=== PATIENT | male | born 1965 | race Two or more races ===

== ENCOUNTER 2022-05-28 00:15 | Emergency (ER) | payer OTHER ==
[~2022-05-28] VITALS: Ht 185.4 cm; Wt 68.0 kg
--- NOTE | 2022-05-28 00:25 | NUR ---
[id number]. SUBSTERNAL CP X 1 HR. I SPRAY NITRO GIVEN AND ASA 325MG. PATIENT IS ALERT, ORIENTED X4. PALE LOOKING. HAS PORTACATH ON THE RIGHT ANTERIOR CHEST FOR CHEMO TTT OF PROSTATE CA. PATIENT IS ATTACHED TO MONITOR. VITALS CHECKED AND WILL CONTINUE TO MONITOR.
[2022-05-28] MEDS ORDERED: MORPHINE SULFATE INJ 2 MG/ML DISP.SYRIN IV ONE (00:30)
--- NOTE | 2022-05-28 00:35 | NUR ---
ATTACHED TO MONITOR.
--- NOTE | 2022-05-28 00:36 | NUR ---
IV CANNULA G20 INSERTED ON RIGHT FA. BLOOD DRAWN AND SENT TO LAB
--- NOTE | 2022-05-28 00:36 | NUR ---
EKG DONE AT BEDSIDE
--- NOTE | 2022-05-28 00:37 | NUR ---
CXR DONE AT BEDSIDE
[2022-05-28] MEDS ORDERED: MORPHINE SULFATE INJ 4 MG/ML DISP.SYRIN ONE (00:45)
[2022-05-28 00:50] LABS: BASOPHILS % (AUTO) 0.4 % (0.0-2.0); EOSINOPHILS % (AUTO) 0.7 % (0.0-6.0); HEMATOCRIT 44 % (39-51); HEMOGLOBIN 14.4 g/dL (13.5-17.5); LYMPHOCYTES # (AUTO) 2.4 K/uL (0.8-4.8); LYMPHOCYTES % (AUTO) 42.7 % (20.0-44.0); MEAN CORPUSCULAR HGB CONC 33 g/dl (31.0-36.0); MEAN CORPUSCULAR VOLUME 89 fL (80-96); MONOCYTES # (AUTO) 0.4 K/uL (0.1-1.30); MONOCYTES % (AUTO) 7.1 % (2.0-12.0); NEUTROPHILS # (AUTO) 2.7 K/uL (1.8-8.9); NEUTROPHILS % (AUTO) 49.1 % (43.0-81.0); PLATELET COUNT (AUTO) 201 K/uL (150-450); RED BLOOD CELL COUNT(AUTO) 4.93 MIL/uL (4.5-6.0); WHITE BLOOD COUNT (AUTO) 5.5 K/uL (4.3-11.0)
--- NOTE | 2022-05-28 00:52 | NUR ---
COVID SWAB DONE AND SENT TO LAB
--- NOTE | 2022-05-28 01:03 | NUR ---
URINE COLLECTED AND SENT TO LAB
--- NOTE | 2022-05-28 01:11 | NUR ---
DESIGN TECHNOLOGY TEACHER CAME TO REDRAW BLOODS
[2022-05-28 01:33] LABS: CARBON DIOXIDE 32 mmol/L (21-32); CHLORIDE 98 mmol/L (98-107); CREATININE 0.4 mg/dL (0.6-1.3); GLUCOSE 106 mg/dL (74-106); POTASSIUM 3.7 mmol/L (3.5-5.1); SODIUM SERUM 136 mmol/L (136-145); UREA NITROGEN, BLOOD 15 mg/dL (7-18)
[2022-05-28] MEDS ORDERED: HYDROCODONE/APAP 5/325MG TABLET ONE (02:50)
[2022-05-28] MEDS ORDERED: HYDROCODONE/APAP 5/325MG TABLET PO ONE (03:00)
--- NOTE | 2022-05-28 03:29 | NUR ---
[employer] ACCOUNTANT- [facility] [phone]
--- NOTE | 2022-05-28 04:44 | NUR ---
PATIENT WANTS TO GO HOME AMA. DR FLOYD MADE AWARE. SIGNED AMA. IV CANNULA REMOVED.
[2022-05-28 04:45] VITALS: BP 137/98
== END 2022-05-28 04:46 | disposition left against medical advice (07) ==
LOC: ER 00:18
DX: R07.9 Chest pain, unspecified (principal); Z85.07 Personal history of malignant neoplasm of pancreas; Z85.46 Personal history of malignant neoplasm of prostate; I25.10 Atherosclerotic heart disease of native coronary artery without angina pectoris; Z95.5 Presence of coronary angioplasty implant and graft; Z20.822 Contact with and (suspected) exposure to COVID-19
CPT/HCPCS: 99285; 96374; 71045; 87426; 93005; 85025; 80048; 36415; 84484; J2270; C9803

== ENCOUNTER 2022-09-23 17:50 | Emergency (ER) | payer OTHER ==
[~2022-09-23] VITALS: Ht 175.3 cm; Wt 61.2 kg
--- NOTE | 2022-09-23 18:00 | NUR ---
[id number] FROM HOME C/O CHEST PAIN 30MIN RESPIRATORY PHYSICIAN, NONRADIATING GIVEN 0.4 NITRO SPRAY, LIVES WITH SON WHO'S COVID POSITIVE. PLACED ON BED, AAOX4, BREATHING EVEN AND UNLABORED SATURATING AT 96%RA, IN PAIN 6/10 PS, ATTACHED TO MONITOR SHOWS SINUS TACH, ID- [id number].
[2022-09-23] MEDS ORDERED: ASPIRIN 325 MG TABLET PO ONE (19:00)
--- NOTE | 2022-09-23 19:00 | NUR ---
blood drawn and sent to lab
[2022-09-23] MEDS ORDERED: DIAZ5TAB4 PO (19:05)
[2022-09-23] MEDS ORDERED: AMLO2.5T4 PO (19:05)
[2022-09-23] MEDS ORDERED: ASPI-869 PO (19:05)
[2022-09-23] MEDS ORDERED: PREG-59 PO (19:05)
[2022-09-23] MEDS ORDERED: CARV6.252 PO (19:05)
[2022-09-23] MEDS ORDERED: ATOR10TA PO (19:05)
[2022-09-23] MEDS ORDERED: POLY17PO4 PO (19:05)
[2022-09-23] MEDS ORDERED: ABIR250T2 PO (19:05)
[2022-09-23] MEDS ORDERED: MIRT-73 PO (19:05)
[2022-09-23] MEDS ORDERED: PANT40TA49 PO (19:05)
[2022-09-23] MEDS ORDERED: PRED5TAB PO (19:05)
[2022-09-23] MEDS ORDERED: SUCR1ORA15 PO (19:05)
[2022-09-23] MEDS ORDERED: POTA20TA83 PO (19:05)
[2022-09-23] MEDS ORDERED: METH10TA2 PO (19:05)
[2022-09-23] MEDS ORDERED: SENN-202 PO (19:05)
[2022-09-23] MEDS ORDERED: NALO4SPR (19:05)
[2022-09-23] MEDS ORDERED: ASPIRIN 325 MG TABLET ONE (19:08)
--- NOTE | 2022-09-23 19:46 | NUR ---
COVID SWAB COLLECTED
[2022-09-23 19:47] LABS: CALCIUM, SERUM 9.5 mg/dL (8.5-10.1); CARBON DIOXIDE 29 mmol/L (21-32); CHLORIDE 108 mmol/L (98-107); CREATININE 0.5 mg/dL (0.6-1.3); GLUCOSE 75 mg/dL (74-106); POTASSIUM 4.5 mmol/L (3.5-5.1); SODIUM SERUM 139 mmol/L (136-145); UREA NITROGEN, BLOOD 15 mg/dL (7-18)
[2022-09-23] MEDS ORDERED: ACETAMINOPHEN ES 500 MG TABLET ONE (19:59)
[2022-09-23 20:00] LABS: ALANINE AMINOTRANSFERASE 22 U/L (12-78); ALBUMIN 3.9 g/dL (3.4-5.0); ALKALINE PHOSPHATASE 49 U/L (46-116); ASPARTATE AMINOTRANSFERASE 21 U/L (15-37); BILIRUBIN,DIRECT 0.1 mg/dL (0.0-0.2); BILIRUBIN,TOTAL 0.3 mg/dL (0.2-1.0)
[2022-09-23] MEDS ORDERED: ACETAMINOPHEN ES 500 MG TABLET PO ONE (20:00)
[2022-09-23 20:42] LABS: BASOPHILS % (AUTO) 0.4 % (0.0-2.0); EOSINOPHILS % (AUTO) 1.4 % (0.0-6.0); HEMATOCRIT 42 % (39-51); HEMOGLOBIN 13.6 g/dL (13.5-17.5); LYMPHOCYTES # (AUTO) 0.5 K/uL (0.8-4.8); LYMPHOCYTES % (AUTO) 9.3 % (20.0-44.0); MEAN CORPUSCULAR HGB CONC 33 g/dl (31.0-36.0); MEAN CORPUSCULAR VOLUME 94 fL (80-96); MONOCYTES # (AUTO) 0.4 K/uL (0.1-1.30); NEUTROPHILS # (AUTO) 4.2 K/uL (1.8-8.9); NEUTROPHILS % (AUTO) 81.9 % (43.0-81.0); PLATELET COUNT (AUTO) 199 K/uL (150-450); RED BLOOD CELL COUNT(AUTO) 4.42 MIL/uL (4.5-6.0); WHITE BLOOD COUNT (AUTO) 5.1 K/uL (4.3-11.0)
[2022-09-23] MEDS ORDERED: ONDANSETRON HCL/PF 4 MG/2 ML VIAL ONE (21:45)
[2022-09-23] MEDS ORDERED: ONDANSETRON HCL/PF - ER 4 MG/2 ML VIAL IV ONE (22:00)
--- NOTE | 2022-09-23 23:05 | NUR ---
RM 110
--- NOTE | 2022-09-23 23:11 | NUR ---
REPORT GIVEN TO CHHAYA RANDOLPH ROOM 110 FOR JJ
--- NOTE | 2022-09-23 23:23 | NUR ---
EXPLAINED TO THAT FOR ADMISSION AND SHE CANNOT STAY WITH HIM COZ HE IS POSITIVE OF COVID. REFUSED TO LEAVE SIDE. SHE WOULD RATHER TAKE HER HOME OR TRANSFER TO OTHER HOSPITAL. EXPLAINED TO AGAIN THE RISK OF DOING AMA FOR HER ESPECIALLY WITH HIS PRESENT MEDICAL CONDITION. SHE CLAIMED SHE UNDERSTOOD BUT WANT TO SIGN AMA AND BRING TO [facility]. DR SANCHEZ AND ARTERIAL EMBALMER CHEMA AND DANGELO AARON MADE AWARE.
--- NOTE | 2022-09-23 23:28 | NUR ---
OF THE PATIENT SIGNED AMA DR SANCHEZ AND HOSPITALIST CHEMA MADE AWARE.
[2022-09-23] MEDS ORDERED: PROMETHAZINE HCL SYRUP 6.25 MG/5 ML UDC PO PRN (23:30)
[2022-09-23] MEDS ORDERED: ACETAMINOPHEN 325 MG TABLET PO PRN (23:30)
[2022-09-23] MEDS ORDERED: MORPHINE SULFATE INJ 2 MG/ML DISP.SYRIN IV PRN (23:30)
[2022-09-23] MEDS ORDERED: MAG HYDROX/AL HYDROX/SIMETH 30 ML UDC PO PRN (23:30)
[2022-09-23] MEDS ORDERED: ONDANSETRON HCL/PF 4 MG/2 ML VIAL IVP PRN (23:30)
[2022-09-23] MEDS ORDERED: Z GUARD REMEDY 4 OZ OINT TP PRN (23:30)
[2022-09-23] MEDS ORDERED: NITROGLYCERIN 0.4 MG/TAB BOTTLE SL PRN (23:30)
[2022-09-23] MEDS ORDERED: ZOLPIDEM TARTRATE 5 MG TABLET PO PRN (23:30)
[2022-09-23] MEDS ORDERED: DIAZEPAM 5 MG TABLET PO PRN (23:30)
[2022-09-23] MEDS ORDERED: ENOXAPARIN SODIUM 40 MG/0.4 ML DISP.SYRIN SQ SCH (23:30)
[2022-09-23] MEDS ORDERED: MAGNESIUM HYDROXIDE 30 ML UDC PO PRN (23:30)
--- NOTE | 2022-09-23 23:37 | NUR ---
Patient discharged to home in stable condition. Written and verbal after care instructions given. Patient verbalizes understanding of instruction.
--- NOTE | 2022-09-23 23:37 | NUR ---
IV CANNULA REMOVED
[2022-09-23 23:38] VITALS: BP 101/64
[2022-09-23] MEDS ORDERED: ALBUTEROL FS 2.5 MG/3 ML VIAL.NEB NEB PRN (23:45)
[2022-09-24] MEDS ORDERED: METHADONE HCL 10 MG TABLET PO SCH (05:00)
[2022-09-24] MEDS ORDERED: PANTOPRAZOLE 40 MG TABLET.DR PO SCH (07:30)
[2022-09-24] MEDS ORDERED: PANTOPRAZOLE 40 MG VIAL IV SCH (09:00)
[2022-09-24] MEDS ORDERED: PREGABALIN 100 MG CAPSULE PO SCH (09:00)
[2022-09-24] MEDS ORDERED: AMLODIPINE BESYLATE 2.5 MG TABLET PO SCH (09:00)
[2022-09-24] MEDS ORDERED: CARVEDILOL 6.25 MG TABLET PO SCH (09:00)
[2022-09-24] MEDS ORDERED: ASPIRIN EC 325 MG TABLET.DR PO SCH (09:00)
[2022-09-24] MEDS ORDERED: POLYETHYLENE GLYCOL 3350 17 GM POWD.PACK PO SCH (09:00)
[2022-09-24] MEDS ORDERED: MIRTAZAPINE SOLUTAB 15 MG/UDTABLET TAB.RAPDIS PO SCH (22:00)
[2022-09-24] MEDS ORDERED: ATORVASTATIN 10 MG TABLET PO SCH (22:00)
== END 2022-09-23 23:39 | disposition left against medical advice (07) ==
LOC: ER 17:54 → TELE1 23:05 → UNDOADMIN 23:05
DX: R07.9 Chest pain, unspecified (principal); U07.1 COVID-19; I25.10 Atherosclerotic heart disease of native coronary artery without angina pectoris; Z95.5 Presence of coronary angioplasty implant and graft; Z95.1 Presence of aortocoronary bypass graft; Z90.79 Acquired absence of other genital organ(s); F41.9 Anxiety disorder, unspecified; E78.5 Hyperlipidemia, unspecified; Z85.46 Personal history of malignant neoplasm of prostate; I10 Essential (primary) hypertension; Z79.82 Long term (current) use of aspirin; Z79.899 Other long term (current) drug therapy
CPT/HCPCS: 99285; 96374; 71045; 87426; 93005; 85025; 80048; 80076; 36415; 84484 ×2; 87081; 83880; J2405 ×2; C9803; G0378